=== PATIENT | female | born 1990 | race Caucasian/White ===

== ENCOUNTER 2021-07-17 18:10 | Emergency (ER) | payer MEDICAID, OTHER ==
[~2021-07-17] VITALS: Ht 160 cm; Wt 90.7 kg
[2021-07-17 18:28] VITALS: BP 120/74
== END 2021-07-18 03:41 | disposition left against medical advice (07) ==
LOC: ER 18:12
DX: U07.1 COVID-19 (principal); R05.9 Cough, unspecified; Z53.21 Procedure and treatment not carried out due to patient leaving prior to being seen by health care provider
CPT/HCPCS: 36415; 87426

== ENCOUNTER 2024-06-03 18:33 | Emergency (ER) | payer MEDICAID ==
[~2024-06-03] VITALS: Ht 160 cm; Wt 110.6 kg
[2024-06-03 18:49] VITALS: BP 118/77; PULSE 98; RESP 18; TEMP 98.5; O2SAT 97
[2024-06-03 19:53] LABS: Urine Bacteria FEW /hpf (None Seen); Urine Blood 1+ /uL (Negative); Urine Clarity Turbid (Clear); Urine Color Yellow (Yellow); Urine Mucus FEW (None Seen); Urine Protein, UAD 1+ (Negative); Urine Specific Gravity 1.032 (1.001-1.035); Urine Urobilinogen Normal (Negative); Urine WBC 14 /hpf (0 - 5)
[2024-06-03] MEDS ORDERED: CLIN1CAP70 PO (21:01)
[2024-06-03] MEDS ORDERED: IBUP-1455 PO (21:01)
[2024-06-03] MEDS: cefTRIAXone SOD 1,000 MG VL IM ONE (21:40)
== END 2024-06-03 21:50 | disposition home or self-care (01) ==
LOC: ER 18:33
DX: L03.114 Cellulitis of left upper limb (principal); Z88.1 Allergy status to other antibiotic agents
CPT/HCPCS: 81001; 96372; 99283; J0696